=== PATIENT | female | born 1965 | race American Indian/Alaskan Native ===

== ENCOUNTER 2018-06-22 08:33 | Outpatient (CLI) | payer OTHER ==
--- NOTE | 2018-06-22 14:37 | Ultrasound Report ---
BILATERAL DIGITAL DIAGNOSTIC MAMMOGRAM and LEFT BREAST ULTRASOUND: 06/22/18 08:33:00 CLINICAL: Recalled for bilateral mammographic asymmetries. COMPARISON:05/16/18 screening FINDINGS: Right lateralmedial and spot compression MLO views were performed and are negative. A left ML view is negative but left spot compression MLO and CC views demonstrate a persistent partially circumscribed upper outer asymmetry. Ultrasound of the upper-outer left breast was performed and demonstrated an oval superficial relatively smooth complex cyst versus solid mass at 1 o'clock 5 cm from the nipple. It measures 6 x 3 x 5 mm and correlates with the mammographic density. IMPRESSION: A 6 mm complex cyst versus solid mass at 1 o'clock 5 cm from the nipple.Recommend ultrasound-guided needle aspiration/biopsy. BI-RADS CATEGORY: 4--Suspicious ACR BI-RADS MAMMOGRAPHIC CODES: 0 = Needs additional imaging evaluation; 1 = Negative; 2 = Benign; 3 = Probably benign; 4 = Suspicious; 5 = Malignant; 6 = Known biopsy-proven malignancy COMMENT: 1. Dense breast tissue, i.e., adenosis, fibrocystic changes, etc., may obscure an underlying neoplasm. 2. Approximately 10% of cancers are not detected with mammography. 3. A negative mammography report should not delay biopsy if a clinically suspicious mass is present. COMMENT: Patient follow-up letters are generated via our [employer] application.
== END 2018-06-22 08:34 | disposition home or self-care (01) ==
LOC: MAMMO 08:33
PROVIDERS: ATTEND Specialist
DX: R92.8 Other abnormal and inconclusive findings on diagnostic imaging of breast (principal); Z90.710 Acquired absence of both cervix and uterus
CPT/HCPCS: 77066

== ENCOUNTER 2018-06-23 13:25 | Outpatient (CLI) | payer OTHER ==
--- NOTE | 2018-06-23 15:39 | Mammography Report ---
LEFT DIGITAL DIAGNOSTIC MAMMOGRAM: 06/23/18 13:25:00 CLINICAL: For clip placement immediately status post ultrasound biopsy. COMPARISON:05/16/18 FINDINGS: A biopsy clip is now identified in the upper outer quadrant and the clip position is concordant with the previously identified mass. IMPRESSION: Concordant clip placement status post ultrasound biopsy. BI-RADS CATEGORY: 4--Suspicious Pathology pending.
--- NOTE | 2018-06-23 16:16 | Ultrasound Report ---
ULTRASOUND GUIDED NEEDLE CORE BIOPSY LEFT BREAST WITH CLIP PLACEMENT: 06/23/18 CLINICAL: A 6 mm complex cyst versus solid mass at 1 o'clock 5 cm from the nipple. COMPARISON :A same day ultrasound and mammogram. FINDINGS: The procedure was explained to the patient and informed consent was obtained. Ultrasound demonstrated the oval superficial smooth lesion at 1 o'clock 5 cm from the nipple. I marked the breast with a felt tip marker and a time out was called. The skin was prepped with Betadine and anesthetized with 1% lidocaine. I attempted unsuccessfully to aspirate the lesion with an 18-gauge needle. Needle core biopsy was then performed through a tiny dermatotomy using ultrasound guidance, 2% lidocaine with epinephrine for deep anesthesia and a 14-gauge Achieve biopsy device. 4 cores were obtained and placed in formalin. A clip was deployed within the mass. The patient tolerated the procedure well and there were no apparent complications. Hemostasis was achieved with minimal pressure and a sterile dressing was applied. A two view mammogram demonstrated concordant clip deployment. She left the department in good condition and was given instructions for wound care and followup. IMPRESSION: Uncomplicated ultrasound guided needle core biopsy with clip placement left breast.
== END 2018-06-23 13:26 | disposition home or self-care (01) ==
LOC: SPVWC 13:25
DX: N60.22 Fibroadenosis of left breast (principal); R92.0 Mammographic microcalcification found on diagnostic imaging of breast; Z79.899 Other long term (current) drug therapy; Z90.710 Acquired absence of both cervix and uterus
CPT/HCPCS: 88305

== ENCOUNTER 2018-11-07 08:57 | Emergency (ER) | payer OTHER ==
[2018-11-07] MEDS ORDERED: XYLOCAINE TOPICAL 4% TP ONE (10:08)
[2018-11-07] MEDS ORDERED: SOLU-Medrol IV ONE (10:09)
[2018-11-07] MEDS ORDERED: FIORICET PO ONE (10:09)
[2018-11-07] MEDS ORDERED: MAGNESIUM SULFATE 2GM/50ML 2 GM/50 ML BAG IV ONE (10:09)
[2018-11-07] MEDS ORDERED: REGLAN IV ONE (10:09)
--- NOTE | 2018-11-07 10:09 | Emergency Department Report ---
ED Headache HPI - General Chief Complaint: Headache Stated Complaint: HEADACHE Time Seen by Provider: 11/07/18 09:53 Source: patient Exam Limitations: no limitations - History of Present Illness Initial Comments: This is a 53-year-old female. The patient typically follows at the [facility]. The patient reports no chronic medical conditions. 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 The patient presents to the emergency room with a complaint of headache. The headache is frontal, bitemporal. Headache is throbbing, intermittent, waxing and waning, over the past 2-3 weeks. The headache is not sudden, or thunderclap in nature. It did not reach maximal intensity within one hour. The headache is not associated with neck pain, neck stiffness or fever. There is mild nausea. The patient reports getting approximately 4 hours of sleep on average night. She reports having her eyes checked in [place] a few months ago, but so far, has not filled her ocular prescriptions. She believes that she is on her cellular phone for many hours a day. She denies neck pain, neck stiffness, chest pain, abdominal pain, shortness of breath, urinary symptoms, rash, fevers and chills. Timing/Duration: waxing and waning, other (weeks) Quality: moderate Head Injury Location: frontal, temporal Recent Head Trauma: chronic headaches, other (patient reports getting 3 headaches a week since June. This is similar to prior headaches, although more intense.) Modifying Factors: improves with: other (times worsened with light exposure. Occasionally worse with exposure to sound) Associated Symptoms: nausea/vomiting (nausea, no vomiting). denies: confusion, fatigue, facial pain, fever/chills, flushing, loss of consciousness, nasal congestion, nasal drainage, numbness in legs/feet, rash, seizures, sinus infection, stiff neck, vision changes, weakness Allergies/Adverse Reactions: Allergies aspirin Allergy (Verified 11/07/18 09:00) Rash Home Medications: Ambulatory Orders Esomeprazole Magnesium [NexIUM] 40 mg PO QDAY #30 04/18/13 Famotidine [Pepcid] 10 mg PO BID #30 tablet 04/18/13 Ondansetron [Zofran] 4 mg PO Q6HR PRN #12 tablet 04/18/13 traMADol [Ultram] 50 mg PO Q6HR PRN #12 tablet 04/18/13 Butalb/Acetaminophen/Caffeine [Fioricet 50-300-40 mg CAP] 1 cap PO Q6HR PRN #15 cap 11/07/18 Metoclopramide [Reglan] 10 mg PO QID PRN #25 tab 11/07/18 ED Review of Systems ROS: Stated complaint: HEADACHE Other details as noted in HPI Constitutional: denies: fever, malaise Eyes: denies: eye discharge, vision change ENT: denies: epistaxis Respiratory: denies: cough Cardiovascular: denies: chest pain Gastrointestinal: nausea. denies: abdominal pain Genitourinary: denies: dysuria Musculoskeletal: denies: back pain Skin: denies: lesions Neurological: headache. denies: weakness, numbness, confusion ED Past Medical Hx - Past Medical History Hx Headaches / Migraines: Yes Additional medical history: h pylori - Social History Smoking Status: Current Every Day Smoker - Medications Home Medications: Home Medications Medication Instructions Recorded Confirmed Last Taken Type Esomeprazole Magnesium [NexIUM] 40 mg PO QDAY #30 04/18/13 04/18/13 Unknown Rx Famotidine [Pepcid] 10 mg PO BID #30 tablet 04/18/13 Unknown Rx Ondansetron [Zofran] 4 mg PO Q6HR PRN #12 tablet 04/18/13 Unknown Rx traMADol [Ultram] 50 mg PO Q6HR PRN #12 tablet 04/18/13 Unknown Rx Butalb/Acetaminophen/Caffeine 1 cap PO Q6HR PRN #15 cap 11/07/18 Unknown Rx [Fioricet 50-300-40 mg CAP] Metoclopramide [Reglan] 10 mg PO QID PRN #25 tab 11/07/18 Unknown Rx ED Physical Exam - General Limitations: No Limitations General appearance: alert, in no apparent distress - Head Head exam: Present: atraumatic, normocephalic - Eye Eye exam: Present: normal appearance, PERRL, EOMI, other (visual acuity intact to finger counting, color perception, reading at a close distance). Absent: nystagmus - ENT ENT exam: Present: normal exam, normal orophraynx, mucous membranes moist, TM's normal bilaterally, normal external ear exam, other (there is no mastoid tenderness. There is no nasal septal hematoma. There is no hemotympanum) - Neck Neck exam: Present: normal inspection, full ROM. Absent: tenderness, meningismus - Respiratory Respiratory exam: Present: normal lung sounds bilaterally. Absent: respiratory distress - Cardiovascular Cardiovascular Exam: Present: regular rate, normal rhythm, normal heart sounds. Absent: bradycardia, tachycardia, irregular rhythm, systolic murmur, diastolic murmur, rubs, gallop - GI/Abdominal GI/Abdominal exam: Present: soft. Absent: distended, tenderness, guarding, rebound, rigid, pulsatile mass - Extremities Exam Extremities exam: Present: normal inspection, full ROM, other (2+ pulses noted in the bilateral upper, lower extremities. Compartments soft. No long bony tenderness. The pelvis is stable.). Absent: tenderness, normal capillary refill, pedal edema, joint swelling, calf tenderness - Back Exam Back exam: Present: normal inspection, full ROM. Absent: tenderness, CVA tenderness (R), CVA tenderness (L), muscle spasm, paraspinal tenderness, vertebral tenderness - Neurological Exam Neurological exam: Present: alert, oriented X3, CN II-XII intact, normal gait (there is no past pointing. There is normal [id number]. There is negative pronator drift.), other (Extraocular movements intact. Tongue midline. No facial droop. Facial sensation intact to light touch in the V1, V2, V3 distribution bilaterally. 5 and 5 strength in 4 extremities.. Sensation is intact to light touch in 4 extremities.). Absent: motor sensory deficit - Psychiatric Psychiatric exam: Present: normal affect, normal mood - Skin Skin exam: Present: warm, dry, intact, normal color. Absent: rash ED Course Vital Signs 11/07/18 09:03 Temperature 98.9 F Pulse Rate 73 Respiratory 16 Rate Blood Pressure 115/65 O2 Sat by Pulse 100 Oximetry - Reevaluation(s) Reevaluation #1: 11/07/18 10:41 Differential diagnosis, including but not limited to: Migraine headache, tension headache, cluster headache, and adequate sleep, ocular headache Assessment and plan: 53-year-old female with reported headache for a few weeks. She is afebrile, with reassuring vital signs. She walks with a steady gait. Her cranial nerve examination is unremarkable. Visual examination is grossly unremarkable. The patient's headache does not have historical red flag features for dangerous or life-threatening etiology of headache. The patient is resting comfortable, and her stretcher, speaking comfortable on a cellular phone. We will treat the patient's symptoms. She will be given intranasal lidocaine, caffeine-containing headache medication, Reglan, magnesium, and steroids. I instructed the patient that she would need to get at least 7-8 hours of good q uality sleep every 24 hours. I instructed the patient to limit utilization of her cellular phone. I instructed the patient that she will need to follow up with an insurance instructor or hospital pharmacy technician have her visual prescriptions filled. The patient is following in the [facility] system. She reports they have set up an outpatient MRI for her, and that she will likely be following up with neurology after the MRI has been completed. Based off of the history and physical, I do not please the patient requires emergent neuroimaging at this time. 11/07/18 10:42 Reevaluation #2: 11/07/18 11:03 The patient is reassessed. She is smiling. She is talking conservative phone. She reports dramatic improvement in her headache. Reiterated previous recommendations. Patient verbalizes understanding. Critical care attestation.: If time is entered above; I have spent that time in minutes in the direct care of this critically ill patient, excluding procedure time. ED Disposition Clinical Impression: Headache Disposition: [id number] TO HOME OR SELFCARE Is pt being admited?: No Does the pt Need Aspirin: No Condition: Stable Additional Instructions: I recommend the patient obtained 7-8 hours of good quality on interrupted sleep, every 24 hours. Please follow up with an hospital pharmacy technician or insurance instructor within the next 7-10 days to have vision rechecked, and Brent visual prescriptions, if recommended. I recommend limiting utilization of cellular phone to only work-related essential tasks. Please attempt to minimize recreational and salsa mediate use on cellular phone.. Please follow up with her primary care doctor or neurologists within the next 2 weeks. Return to the emergency room right away with new, worsening or different symptoms. For the patient's convenience, local ophthalmologists and neurology specialists have been listed for her ability to follow up The patient may take the prescribed medications as directed. These may assist in reporting headaches. Prescriptions: Butalb/Acetaminophen/Caffeine [Fioricet 50-300-40 mg CAP] 1 cap PO Q6HR PRN #15 cap PRN Reason: Headache Metoclopramide [Reglan] 10 mg PO QID PRN #25 tab PRN Reason: Headache Referrals: NICOLÁS RAHMAN MD [Staff Physician] - as needed (opthalmology) DIETER HINDS MD [Referring] - as needed (neurology) SARAH ALARCON MD [Staff Physician] - as needed (neurology) FLOYD MORE MD [Staff Physician] - as needed (neurology)
[2018-11-07 11:07] VITALS: BP 102/55
== END 2018-11-07 11:52 | disposition home or self-care (01) ==
LOC: ED 08:57
DX: G43.909 Migraine, unspecified, not intractable, without status migrainosus (principal); F17.200 Nicotine dependence, unspecified, uncomplicated; Z88.6 Allergy status to analgesic agent
CPT/HCPCS: 96365; 96375; 99283; J2765; J2930; J3475

== ENCOUNTER 2019-01-11 10:01 | Outpatient (CLI) | payer OTHER ==
--- NOTE | 2019-01-11 12:00 | Mammography Report ---
LEFT BREAST DIAGNOSTIC MAMMOGRAM WITH CAD AND LEFT BREAST ULTRASOUND HISTORY: Six-month follow-up after benign biopsy. Ultrasound-guided needle biopsy on 06/23/2018 reveal ed benign fibroadenomatous change. COMPARISON: 06/23/2018 and 06/22/2018 FINDINGS: Left Breast Mammogram: Digital CC and MLO views demonstrate a heterogeneously dense breast parenchym al pattern which somewhat lessens the sensitivity of the evaluation. A clip is identified in the upp er outer quadrant and there is a partially circumscribed density associated with it on the CC view. Left Breast Ultrasound: Sonographic evaluation of the left breast at 1:00 5 cm from the nipple revea led an oval solid described 5 mm hypoechoic mass with a biopsy clip. It correlates with the biopsied lesion and is smaller. IMPRESSION A benign 5 mm left breast mass at 1:00 5 cm from the nipple. Recommend return to routine mammographic screening. She will be due for a routine screening mammogram in May 2019. BIRADS 2: Benign According to the [employer], yearly mammograms are recommended starting at age 40 and continuing as long as a woman is in good health. Clinical Breast Exams should be part of a period ic health exam-about every 3 years for women in their 20s and 30s and every year for women 40 and ove r. Breast self exam is an option for women starting in their 20s. Any breast change noted on a breast self exam should be reported promptly to the patient's healthcare provider. Breast MRI is recommende d for women with an approximately 20-25% or greater lifetime risk of breast cancer, including women w ith a strong family history of breast or ovarian cancer and women who have been treated for Hodgkin's disease. A negative Mammography report should not discourage follow up or biopsy of a clinically significant f inding and/or abnormality. Dense breast tissue may obscure small neoplasms. Signer Name: Chetan Albrecht MD Signed: 01/11/2019 11:56 AM Workstation Name: [id number]
== END 2019-01-11 10:02 | disposition home or self-care (01) ==
LOC: MAMMO 10:01
DX: N63.24 Unspecified lump in the left breast, lower inner quadrant (principal); Z90.710 Acquired absence of both cervix and uterus

== ENCOUNTER 2020-11-05 13:37 | Outpatient (CLI) | payer BC ==
[2020-11-05 14:12] LABS: Basophils # (Auto) 0.1 K/mm3 (0.0-0.1); Eosinophils # (Auto) 0.2 K/mm3 (0.0-0.4); Eosinophils % (Auto) 3.2 % (0.0-4.3); Hematocrit 34.6 % (30.3-42.9); Hemoglobin 11.7 gm/dl (10.1-14.3); Lymphocytes # (Auto) 1.8 K/mm3 (1.2-5.4); Lymphocytes % (Auto) 35.6 % (13.4-35.0); Mean Corpuscular HGB Conc 34 % (30-34); Mean Corpuscular Volume 99 fl (79-97); Monocytes # (Auto) 0.4 K/mm3 (0.0-0.8); Monocytes % (Auto) 7.5 % (0.0-7.3); Platelet Count 355 K/mm3 (140-440); Red Blood Count 3.48 M/mm3 (3.65-5.03); Red Cell Distribution Width 13.9 % (13.2-15.2)
[2020-11-05 14:39] LABS: Erythrocyte Sedimentation Rate 24 mm/Hr (0-20)
[2020-11-05 14:44] LABS: Alanine Aminotransferase 7 units/L (7-56); Albumin 4.6 g/dL (3.9-5); BUN/Creatinine Ratio 10; Blood Urea Nitrogen 8 mg/dL (7-17); Calcium 9.4 mg/dL (8.4-10.2); Hemolysis Index 4
[2020-11-10 12:49] LABS: Vitamin D, 25-OH, D2 <4 ng/mL
[2020-11-11 00:08] LABS: ANA Screen, IFA Negative (Negative)
[2020-11-11 00:57] LABS: Albumin 4.5 g/dL (3.8-4.8); Gamma Globulin 0.8 g/dL (0.8-1.7)
== END 2020-11-05 13:38 | disposition home or self-care (01) ==
LOC: LAB 13:37
PROVIDERS: ATTEND Specialist
DX: G62.9 Polyneuropathy, unspecified (principal); G61.9 Inflammatory polyneuropathy, unspecified
CPT/HCPCS: 36415; 80053; 82306; 82607; 83036; 83921; 84165; 84443; 85025; 85652; 86038; 86225; 86235; 86334; 86431; 86592

== ENCOUNTER 2020-11-18 11:57 | Outpatient (CLI) | payer BC ==
[2020-11-21 23:57] LABS: Albumin 4.6 g/dL (3.8-4.8); Gamma Globulin 0.8 g/dL (0.8-1.7)
== END 2020-11-18 11:58 | disposition home or self-care (01) ==
LOC: LAB 11:57
PROVIDERS: ATTEND Specialist
DX: G62.9 Polyneuropathy, unspecified (principal); G65.1 Sequelae of other inflammatory polyneuropathy
CPT/HCPCS: 36415; 84165

== ENCOUNTER 2021-02-25 10:08 | Outpatient (CLI) | payer OTHER ==
--- NOTE | 2021-02-25 11:19 | Mammography Report ---
BILATERAL DIGITAL SCREENING MAMMOGRAM WITH CAD HISTORY: Screening mammogram, history of benign left breast biopsy. TECHNIQUE: Routine digital mammographic imaging performed. This examination was interpreted with kasey ramírez benefit of Computer-aided Detection analysis. COMPARISON: 01/11/2019, 06/23/2018, 02/20/2019, 05/16/2018. FINDINGS: Breast Density: heterogeneously dense breast parenchymal pattern which somewhat lessens the sensitivi ty of the evaluation. Digital CC and MLO views demonstrate no mammographic evidence of malignancy. Biopsy marker in the le ft upper outer breast is noted at site of benign biopsy. IMPRESSION: No mammographic evidence of malignancy. If the clinical examination remains stable, recommend bilate ral mammogram in approximately one year. BIRADS 2: Benign Finding(s). FURTHER INFORMATION: According to the [employer], yearly mammograms are recommend ed starting at age 40 and continuing as long as a woman is in good health. Clinical Breast Exams shou ld be part of a periodic health exam-about every 3 years for women in their 20s and 30s and every yea r for women 40 and over. Breast self exam is an option for women starting in their 20s. Any breast ch glen noted on a breast self exam should be reported promptly to the patient's healthcare provider. Br east MRI is recommended for women with an approximately 20-25% or greater lifetime risk of breast can cer, including women with a strong family history of breast or ovarian cancer and women who have been treated for Hodgkin's disease. A negative Mammography report should not discourage follow up or biopsy of a clinically significant f inding and/or abnormality. Dense breast tissue may obscure small neoplasms. The patient will be entered into a reminder system with a target due date for the next screening mamm ogram. Signer Name: Santana Florez MD Signed: 02/25/2021 11:14 AM Workstation Name: [id number]
== END 2021-02-25 10:09 | disposition home or self-care (01) ==
LOC: MAMMO 10:08
PROVIDERS: ATTEND Internal Medicine
DX: Z12.31 Encounter for screening mammogram for malignant neoplasm of breast (principal); N64.89 Other specified disorders of breast
CPT/HCPCS: 77067

== ENCOUNTER 2021-08-12 12:15 | Emergency (ER) | payer OTHER ==
[2021-08-12 13:06] VITALS: BP 112/69
--- NOTE | 2021-08-12 14:47 | Emergency Department Report ---
ED Headache HPI - General Chief Complaint: Headache Stated Complaint: MIGRAINE/FATIGUE Time Seen by Provider: 08/12/21 14:42 Source: patient - History of Present Illness Initial Comments: 56-year-old female presents to the ED with a history of migraine. Patient complain of a headache today states that her medication has not arrived from the pharmacy. Patient requesting a prescription for tramadol and Zofran for headache. Patient states headache is currently a 6 out of 10. Patient complained of nausea. Patient is alert and oriented x 3 . No acute distress. No ill-appearing noted. She states the medication from pharmacy should arrive within this week. Quality: moderate Head Injury Location: frontal Recent Head Trauma: no recent headache/trauma Modifying Factors: improves with: cold therapy Associated Symptoms: denies symptoms Allergies/Adverse Reactions: Allergies aspirin Allergy (Verified 11/07/18 09:00) Rash Home Medications: Ambulatory Orders Esomeprazole Magnesium [NexIUM] 40 mg PO QDAY #30 04/18/13 Famotidine [Pepcid] 10 mg PO BID #30 tablet 04/18/13 Ondansetron [Zofran] 4 mg PO Q6HR PRN #12 tablet 04/18/13 traMADoL [Ultram] 50 mg PO Q6HR PRN #12 tablet 04/18/13 Butalb/Acetaminophen/Caffeine [Fioricet 50-300-40 mg CAP] 1 cap PO Q6HR PRN #15 cap 11/07/18 Metoclopramide [Reglan] 10 mg PO QID PRN #25 tab 11/07/18 Ondansetron (Nf) [Zofran TAB] 8 mg PO Q8HR PRN 3 Days #12 tablet 08/12/21 traMADoL [Ultram] 50 mg PO Q6HR PRN 3 Days #12 tablet 08/12/21 ED Review of Systems ROS: Stated complaint: MIGRAINE/FATIGUE Other details as noted in HPI Constitutional: denies: chills, fever Eyes: denies: eye pain, eye discharge, vision change ENT: denies: ear pain, throat pain Respiratory: denies: cough, shortness of breath, wheezing Cardiovascular: denies: chest pain, palpitations Endocrine: no symptoms reported Gastrointestinal: nausea. denies: abdominal pain, diarrhea Genitourinary: denies: urgency, dysuria, discharge Musculoskeletal: denies: back pain, joint swelling, arthralgia Skin: denies: rash, lesions Neurological: headache. denies: weakness, paresthesias Psychiatric: denies: anxiety, depression Hematological/Lymphatic: denies: easy bleeding, easy bruising ED Past Medical Hx - Past Medical History Hx Headaches / Migraines: Yes Additional medical history: h pylori - Social History Smoking Status: Current Every Day Smoker - Medications Home Medications: Home Medications Medication Instructions Recorded Confirmed Last Taken Type Esomeprazole Magnesium [NexIUM] 40 mg PO QDAY #30 04/18/13 04/18/13 Unknown Rx Famotidine [Pepcid] 10 mg PO BID #30 tablet 04/18/13 Unknown Rx Ondansetron [Zofran] 4 mg PO Q6HR PRN #12 tablet 04/18/13 Unknown Rx traMADoL [Ultram] 50 mg PO Q6HR PRN #12 tablet 04/18/13 Unknown Rx Butalb/Acetaminophen/Caffeine 1 cap PO Q6HR PRN #15 cap 11/07/18 Unknown Rx [Fioricet 50-300-40 mg CAP] Metoclopramide [Reglan] 10 mg PO QID PRN #25 tab 11/07/18 Unknown Rx Ondansetron (Nf) [Zofran TAB] 8 mg PO Q8HR PRN 3 Days #12 tablet 08/12/21 Unknown Rx traMADoL [Ultram] 50 mg PO Q6HR PRN 3 Days #12 tablet 08/12/21 Unknown Rx ED Physical Exam - General Limitations: No Limitations General appearance: alert, in no apparent distress - Head Head exam: Present: atraumatic, normocephalic - Eye Eye exam: Present: normal appearance - ENT ENT exam: Present: mucous membranes moist - Neck Neck exam: Present: normal inspection - Respiratory Respiratory exam: Present: normal lung sounds bilaterally. Absent: respiratory distress - Cardiovascular Cardiovascular Exam: Present: regular rate, normal rhythm. Absent: systolic murmur, diastolic murmur, rubs, gallop - GI/Abdominal GI/Abdominal exam: Present: soft, normal bowel sounds - Extremities Exam Extremities exam: Present: normal inspection - Back Exam Back exam: Present: normal inspection - Neurological Exam Neurological exam: Present: alert, oriented X3 - Psychiatric Psychiatric exam: Present: normal affect, normal mood - Skin Skin exam: Present: warm, dry, intact, normal color. Absent: rash ED Course Vital Signs 08/12/21 13:04 Temperature 98.6 F Pulse Rate 96 H Respiratory 16 Rate Blood Pressure 112/69 [Left] O2 Sat by Pulse 100 Oximetry ED Medical Decision Making - Medical Decision Making 56-year-old female presents to the ED with a history of migraine. Patient complain of a headache today states that her medication has not arrived from the pharmacy. Patient requesting a prescription for tramadol and Zofran for headache. Patient states headache is currently a 6 out of 10. Patient complained of nausea. Patient is alert and oriented x 3 . No acute distress. No ill-appearing noted. She states the medication from pharmacy should arrive within this week. She states that tramadol and Zofran normally relieves her migraine headache . Physical examination was unremarkable. Rechecked the patient is resting quietly quietly and comfortable and feeling better. I discussed the results of diagnostic study, my clinical impression and the plan for further treatment with the patient. Patient agrees with plan and discharge at this present time. All question addressed. I have given the patient instruction regarding a diagnosis ,expectation ,follow- up and return precaution. I explained to the patient that emergent condition may arise and to return to the ED for new worsen and any new persisting condition. I have explained the importance of following up with the primary care physician or referral physician listed below has instructed. The patient verbalized understanding of discharge instruction. Critical care attestation.: If time is entered above; I have spent that time in minutes in the direct care of this critically ill patient, excluding procedure time. ED Disposition Clinical Impression: Migraine headache Qualifiers: Migraine type: unspecified Status migrainosus presence: without status migrainosus Intractability: not intractable Qualified Code(s): G43.909 - Migraine, unspecified, not intractable, without status migrainosus Disposition: HOME / SELF CARE / HOMELESS Is pt being admited?: No Does the pt Need Aspirin: No Condition: Stable Instructions: Migraine Headache, [id number] Additional Instructions: Take medication as prescribed Return to ED for any worsening symptom Prescriptions: traMADoL [Ultram] 50 mg PO Q6HR PRN 3 Days #12 tablet PRN Reason: Pain Ondansetron (Nf) [Zofran TAB] 8 mg PO Q8HR PRN 3 Days #12 tablet PRN Reason: Nausea Referrals: PRIMARY CARE, [Primary Care Provider] - 3-5 Days Forms: Work/School Release Form(ED) Time of Disposition: 14:55
== END 2021-08-12 15:26 | disposition home or self-care (01) ==
LOC: ED 12:15
DX: G43.909 Migraine, unspecified, not intractable, without status migrainosus (principal); F17.200 Nicotine dependence, unspecified, uncomplicated
CPT/HCPCS: 99282